=== PATIENT | female | born 1965 | race Hispanic/Latino ===

== ENCOUNTER 2022-08-28 17:00 | Emergency (ER) | payer BC ==
[~2022-08-28] VITALS: Ht 165.1 cm; Wt 72.6 kg
[2022-08-28 17:02] VITALS: BP 127/84
[2022-08-28] MEDS ORDERED: CLIN-141 PO (18:19)
== END 2022-08-28 18:32 | disposition home or self-care (01) ==
LOC: EDH 17:00
DX: L03.011 Cellulitis of right finger (principal); Z79.899 Other long term (current) drug therapy